=== PATIENT | male | born 2000 | race Caucasian/White ===

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

== ENCOUNTER 2021-05-05 03:07 | Emergency (ER) | payer OTHER ==
[~2021-05-05] VITALS: Ht 182.9 cm; Wt 81.8 kg
[2021-05-05 06:16] VITALS: BP 163/83
== END 2021-05-05 07:01 | disposition home or self-care (01) ==
LOC: M ED 03:07
DX: S92.504A Nondisplaced unspecified fracture of right lesser toe(s), initial encounter for closed fracture (principal); W22.09XA Striking against other stationary object, initial encounter; Y92.009 Unspecified place in unspecified non-institutional (private) residence as the place of occurrence of the external cause; Y93.9 Activity, unspecified; Y99.9 Unspecified external cause status; F17.200 Nicotine dependence, unspecified, uncomplicated

== ENCOUNTER 2021-11-09 18:17 | Emergency (ER) | payer OTHER ==
[~2021-11-09] VITALS: Ht 182.9 cm; Wt 77.3 kg
[2021-11-09 18:19] VITALS: BP 139/92
== END 2021-11-09 23:40 | disposition left against medical advice (07) ==
LOC: M ED 18:17
DX: Z53.21 Procedure and treatment not carried out due to patient leaving prior to being seen by health care provider (principal)

== ENCOUNTER 2021-11-10 19:33 | Emergency (ER) | payer OTHER ==
[~2021-11-10] VITALS: Ht 182.9 cm; Wt 77.9 kg
[2021-11-10 19:34] VITALS: BP 142/110
[2021-11-10] MEDS ORDERED: PSEUDOEPHEDRINE 30 MG TAB PO ONE (20:15)
[2021-11-10] MEDS ORDERED: NS 1,000 ML IV ONE (20:15)
[2021-11-10] MEDS ORDERED: KETOROLAC 30 MG/ML 1ML VIAL IV ONE (20:15)
[2021-11-10 20:37] LABS: BASO % 0.3 % (0.0-1.0); EOS % 0.4 % (0.0-3.0); HEMATOCRIT 43.9 % (42.0-52.0); HEMOGLOBIN 15.2 g/dl (13.5-17.5); LYMPH # 1.5 10^3/uL (1.5-5.0); LYMPH % 15.8 % (24.0-44.0); MEAN CORPUSCULAR HEMOGLOBIN 32.3 pg (27.0-33.0); MEAN CORPUSCULAR HGB CONC 34.6 g/dl (32.0-36.5); MEAN CORPUSCULAR VOLUME 93.4 fl (80.0-96.0); MONO # 1.5 10^3/uL (0.0-0.8); MONO % 15.7 % (2.0-8.0); NEUTROPHILS # 6.4 10^3/uL (1.5-8.5); NEUTROPHILS % 67.5 % (36.0-66.0); PLATELET COUNT, AUTOMATED 225 10^3/uL (150-450); WHITE BLOOD COUNT 9.5 10^3/uL (4.0-10.0)
[2021-11-10 21:33] LABS: ALBUMIN 4.1 GM/DL (3.2-5.2); ALT/SGPT 65 U/L (12-78); BILIRUBIN,DIRECT 0.2 MG/DL (0.0-0.2); BILIRUBIN,TOTAL 0.6 MG/DL (0.2-1.0); BLOOD UREA NITROGEN 6 MG/DL (7-18); CALCIUM LEVEL 9.3 MG/DL (8.5-10.1); CARBON DIOXIDE LEVEL 23 MEQ/L (21-32); CHLORIDE LEVEL 105 MEQ/L (98-107); CREATININE FOR GFR 0.78 MG/DL (0.70-1.30); GLUCOSE, FASTING 89 MG/DL (70-100); POTASSIUM SERUM 3.9 MEQ/L (3.5-5.1); SODIUM LEVEL 138 MEQ/L (136-145); TOTAL PROTEIN 8.1 GM/DL (6.4-8.2)
[2021-11-10 21:34] LABS: LIPASE 85 U/L (73-393)
== END 2021-11-10 22:55 | disposition home or self-care (01) ==
LOC: M ED 19:33
DX: R51.9 Headache, unspecified (principal)
CPT/HCPCS: 80048; 80076; 83690; 85025; 87486; 87581; 87633; 87798; 96361; 96374; 99283; J1885

== ENCOUNTER → 2022-08-18 | Outpatient (CLI) | payer OTHER ==
[~2022-08-18] MED LIST changes: +BENZ0.5T2; -BENZ0.5T23
== END ==
LOC: M RAD 16:24
PROVIDERS: ATTEND Physician Assistant Medical
DX: M25.521 Pain in right elbow (principal)

== ENCOUNTER → 2022-09-27 | Outpatient (CLI) | payer OTHER ==
[2022-09-27 19:27] LABS: ALBUMIN 4.1 G/DL (3.2-5.2); ALKALINE PHOSPHATASE 104 U/L (46-116); ALT/SGPT 23 U/L (7.0-40); AST/SGOT 16 U/L (<34); BILIRUBIN,TOTAL 0.6 MG/DL (0.3-1.2); BLOOD UREA NITROGEN 8 MG/DL (9-23); CALCIUM LEVEL 9.6 MG/DL (8.5-10.1); CARBON DIOXIDE LEVEL 30 MMOL/L (20-31); CHLORIDE LEVEL 103 MMOL/L (98-107); CHOLESTEROL LEVEL 172 MG/DL (<200); CHOLESTEROL RISK RATIO 4.15 (<5); CREATININE FOR GFR 0.65 MG/DL (0.70-1.30); GLOMERULAR FILTRATION RATE > 60.0 (>60); GLUCOSE, FASTING 86 MG/DL (60-100); HDL CHOLESTEROL 41.4 MG/DL (>40); LDL CHOLESTEROL 114.2 MG/DL (<100); NON-HDL-C 130.6 MG/DL; POTASSIUM SERUM 4.5 MMOL/L (3.5-5.1); SODIUM LEVEL 137 MMOL/L (136-145); THYROID STIMULATING HORMONE 1.555 uIU/ML (0.55-4.78); TOTAL PROTEIN 6.6 G/DL (5.7-8.2); TRIGLYCERIDES LEVEL 82 MG/DL (<150)
== END ==
LOC: M LAB 18:14
PROVIDERS: ATTEND Nurse Practitioner Family
DX: E78.5 Hyperlipidemia, unspecified (principal)

== ENCOUNTER 2023-09-14 19:59 | Emergency (ER) | payer OTHER ==
[~2023-09-14] VITALS: Ht 180.3 cm; Wt 79.1 kg
[2023-09-14 21:59] VITALS: BP 131/71; TEMP 97.3; O2SAT 99
[2023-09-14] MEDS ORDERED: HYDR-4571 PO (23:48)
[2023-09-14] MEDS: NORCO 5/325MG TABLET (HOME DOSE PACK) PO ONE (23:57)
== END 2023-09-15 00:03 | disposition home or self-care (01) ==
LOC: M ED 19:59
DX: S62.306A Unspecified fracture of fifth metacarpal bone, right hand, initial encounter for closed fracture (principal); Y92.9 Unspecified place or not applicable; Y93.9 Activity, unspecified; Y99.9 Unspecified external cause status; F41.9 Anxiety disorder, unspecified; F31.9 Bipolar disorder, unspecified; F20.9 Schizophrenia, unspecified; Z79.899 Other long term (current) drug therapy

== ENCOUNTER → 2023-09-22 | Outpatient (CLI) | payer OTHER ==
[~2023-09-22] MED LIST changes: +HYDR-4571 PO
== END ==
LOC: M SOG 07:58
PROVIDERS: ATTEND Physician Assistant
DX: S62.336A Displaced fracture of neck of fifth metacarpal bone, right hand, initial encounter for closed fracture (principal)

== ENCOUNTER → 2024-03-10 | Outpatient (REF) | payer OTHER ==
[~2024-03-10] MED LIST changes: -CYCL5TAB PO; +CYCL5TAB4 PO
== END ==
LOC: M LAB REF 16:23
PROVIDERS: ATTEND Student in an Organized Health Care Education/Training Program
DX: R20.2 Paresthesia of skin (principal)

== ENCOUNTER 2024-05-07 09:53 | Inpatient (IN) | payer MEDICAID, OTHER ==
[~2024-05-07] VITALS: Ht 180.3 cm; Wt 77.0 kg
[2024-05-07] MEDS: BOOSTRIX VACCINE (TETANUS/DIPHTH/ACEL. PERTUSSIS) 0.5ML SYR IM.IMMUN ONE (10:50)
[2024-05-07] MEDS: OLANZapine INTRAMUSCULAR 10MG VIAL IM ONE (10:50)
[2024-05-07] MEDS: LORazepam 2 MG/ML 1ML VIAL IM ONE (10:50)
[2024-05-07 11:17] LABS: HEMATOCRIT 40.4 % (42.0-52.0); HEMOGLOBIN 14.3 g/dl (13.5-17.5); MEAN CORPUSCULAR HEMOGLOBIN 32.4 pg (27.0-33.0); MEAN CORPUSCULAR HGB CONC 35.4 g/dl (32.0-36.5); MEAN CORPUSCULAR VOLUME 91.4 fl (80.0-96.0); PLATELET COUNT, AUTOMATED 299 10^3/uL (150-450); RED BLOOD COUNT 4.42 10^6/uL (4.30-6.10); WHITE BLOOD COUNT 8.4 10^3/uL (4.0-10.0)
[2024-05-07 11:29] LABS: COCAINE METABOLITE URINE NEGATIVE (NEGATIVE)
[2024-05-07 11:30] LABS: AMPHETAMINES LEVEL URINE NEGATIVE (NEGATIVE); BARBITURATES URINE NEGATIVE (NEGATIVE); BENZODIAZEPINES URINE NEGATIVE (NEGATIVE); METHADONE URINE NEGATIVE (NEGATIVE); OPIATES URINE NEGATIVE (NEGATIVE); PHENCYCLIDINE URINE NEGATIVE (NEGATIVE)
[2024-05-07 11:32] LABS: CANNABINOIDS URINE POSITIVE (NEGATIVE)
[2024-05-07 11:46] LABS: SALICYLATE LEVEL < 3.0 MG/DL (<30)
[2024-05-07 11:47] LABS: ALBUMIN 4.4 G/DL (3.2-5.2); ALKALINE PHOSPHATASE 94 U/L (40-129); ALT/SGPT 37 U/L (7.0-40); AST/SGOT 55 U/L (<34); BILIRUBIN,DIRECT 0.2 MG/DL (<0.4); BILIRUBIN,TOTAL 0.6 MG/DL (0.3-1.2); BLOOD UREA NITROGEN 14 MG/DL (9-23); CALCIUM LEVEL 8.9 MG/DL (8.5-10.1); CARBON DIOXIDE LEVEL 25 MMOL/L (20-31); CHLORIDE LEVEL 107 MMOL/L (98-107); CREATININE FOR GFR 0.66 MG/DL (0.70-1.30); GLOMERULAR FILTRATION RATE > 60.0 (>60); GLUCOSE, FASTING 83 MG/DL (60-100); POTASSIUM SERUM 4.1 MMOL/L (3.5-5.1); SODIUM LEVEL 143 MMOL/L (136-145); TOTAL PROTEIN 7.7 G/DL (5.7-8.2)
[2024-05-07 11:48] LABS: THYROID STIMULATING HORMONE 0.962 uIU/ML (0.55-4.78)
[2024-05-07] MEDS ORDERED: DESV25TA PO (15:29)
[2024-05-07] MEDS ORDERED: [UNRECOGNIZED DRUG - CODE] SL (15:29)
[2024-05-07] MEDS ORDERED: HOME MED LIST COMPLETE! XX SCH (15:35)
[2024-05-07] MEDS ORDERED: LORazepam 1 MG TAB PO PRN (15:55)
[2024-05-07] MEDS ORDERED: ACETAMINOPHEN 325 MG TAB PO PRN (15:55)
[2024-05-07] MEDS ORDERED: IBUPROFEN 400MG TAB PO PRN (15:55)
[2024-05-07] MEDS ORDERED: MOM 30ML SUSPENSION UDC PO PRN (15:55)
[2024-05-07] MEDS: LORazepam 2 MG TAB PO ONE (15:57)
[2024-05-07] MEDS: OLANZapine 5 MG TAB PO ONE (15:57)
[2024-05-07 16:56] VITALS: BP 138/76; TEMP 98; O2SAT 99
[2024-05-07] MEDS ORDERED: LORazepam 2 MG TAB PO PRN (17:50)
[2024-05-07 18:03] VITALS: BP 138/76
[2024-05-07] MEDS: THIAMINE 100 MG TAB PO SCH (20:27)
[2024-05-07] MEDS: clonazePAM 1 MG TAB PO SCH (20:27)
[2024-05-08] VITALS: BP 126/80
[2024-05-08 06:27] VITALS: BP 130/77; TEMP 97; O2SAT 98
[2024-05-08 08:00] VITALS: BP 130/77
[2024-05-08] MEDS: FOLIC ACID 1MG TAB PO SCH (09:56)
[2024-05-08] MEDS: BUPRENORPHINE/NALOXONE 2-0.5MG SUBLINGUAL TABLET(SUBOXONE) SL SCH (09:56)
[2024-05-08] MEDS: MULTIVITAMINS/MINERALS THERAP 1 TAB PO SCH (09:56)
[2024-05-08] MEDS: NEOSPORIN TOP OINT 15GM TOP SCH (11:17)
[2024-05-08 15:22] VITALS: BP 127/73; TEMP 97.8; O2SAT 96
[2024-05-08] MEDS: QUEtiapine FUMARATE 50MG TAB PO SCH (20:40)
[2024-05-08] MEDS: traZODone 50 MG TAB PO PRN (20:40)
[2024-05-09 06:55] VITALS: BP 109/67; TEMP 97; O2SAT 100
[2024-05-09 15:10] VITALS: BP 139/82; TEMP 98.3; O2SAT 98
[2024-05-10 06:54] VITALS: BP 122/77; TEMP 97.3; O2SAT 98
[2024-05-10] MEDS: NICOTINE POLACRILEX 2 MG GUM PO PRN (15:01)
[2024-05-10] MEDS: clonazePAM 0.5 MG TAB PO SCH (15:29)
[2024-05-10 17:07] VITALS: BP 122/80; TEMP 97.2; O2SAT 96
[2024-05-10] MEDS: QUEtiapine FUMARATE 100 MG TAB PO SCH (22:05)
[2024-05-10] MEDS: OLANZapine ORAL DISINTEGRATING TAB 5MG PO PRN (22:53)
[2024-05-11 06:57] VITALS: BP 107/52; TEMP 98; O2SAT 100
[2024-05-11 16:58] VITALS: BP 132/61; TEMP 97.8; O2SAT 97
[2024-05-11] MEDS: clonazePAM 0.5 MG TAB PO SCH (21:08)
[2024-05-12] MEDS ORDERED: QUET100T2 PO (01:30)
[2024-05-12] MEDS ORDERED: HYDR-3363 PO (01:30)
[2024-05-12] MEDS ORDERED: TRAZ-252 PO (01:30)
[2024-05-12 06:30] VITALS: BP 131/58; TEMP 96.9; O2SAT 98
== END 2024-05-12 11:13 | disposition home or self-care (01) | DRG 756 ==
LOC: EDBD 09:53 → M ED 09:53 → M ED INP 15:23 → EEVIPCON 15:23 → M PSY 16:57
PROVIDERS: ADMIT Psychiatry & Neurology Psychiatry; ATTEND Psychiatry & Neurology Psychiatry
DX: F41.1 Generalized anxiety disorder (principal); S62.336D Displaced fracture of neck of fifth metacarpal bone, right hand, subsequent encounter for fracture with routine healing; F43.10 Post-traumatic stress disorder, unspecified; F90.9 Attention-deficit hyperactivity disorder, unspecified type; F10.10 Alcohol abuse, uncomplicated; F11.10 Opioid abuse, uncomplicated; F17.210 Nicotine dependence, cigarettes, uncomplicated; R45.851 Suicidal ideations; S01.81XA Laceration without foreign body of other part of head, initial encounter; W26.8XXA Contact with other sharp object(s), not elsewhere classified, initial encounter; Z79.899 Other long term (current) drug therapy; Y92.9 Unspecified place or not applicable

== ENCOUNTER 2024-06-08 01:26 | Emergency (ER) | payer MEDICAID, OTHER ==
[~2024-06-08] VITALS: Ht 180.3 cm; Wt 77.3 kg
[~2024-06-08 01:26] MED LIST changes: +DESV25TA PO; +HYDR-3363 PO; +QUET100T2 PO; +TRAZ-252 PO; +[UNRECOGNIZED DRUG - CODE] SL
[2024-06-08 04:22] LABS: BASO % 0.3 % (0.0-1.0); EOS # 0.1 10^3/uL (0.0-0.5); EOS % 0.5 % (0.0-3.0); HEMOGLOBIN 13.4 g/dl (13.5-17.5); LYMPH # 2.4 10^3/uL (1.5-5.0); LYMPH % 24.4 % (24.0-44.0); MEAN CORPUSCULAR HEMOGLOBIN 32.6 pg (27.0-33.0); MEAN CORPUSCULAR HGB CONC 35.3 g/dl (32.0-36.5); MEAN CORPUSCULAR VOLUME 92.5 fl (80.0-96.0); MONO # 1.3 10^3/uL (0.0-0.8); MONO % 12.7 % (2.0-8.0); NEUTROPHILS # 6.2 10^3/uL (1.5-8.5); NEUTROPHILS % 61.9 % (36.0-66.0); PLATELET COUNT, AUTOMATED 225 10^3/uL (150-450); RED BLOOD COUNT 4.11 10^6/uL (4.30-6.10)
[2024-06-08 04:43] LABS: BARBITURATES URINE NEGATIVE (NEGATIVE); BENZODIAZEPINES URINE NEGATIVE (NEGATIVE)
[2024-06-08 04:44] LABS: METHADONE URINE NEGATIVE (NEGATIVE); OPIATES URINE NEGATIVE (NEGATIVE); PHENCYCLIDINE URINE NEGATIVE (NEGATIVE)
[2024-06-08 04:45] LABS: ETHYL ALCOHOL (ETHANOL) 0.036 % (0.000-0.010)
[2024-06-08 04:47] LABS: BLOOD UREA NITROGEN 8 MG/DL (9-23); CALCIUM LEVEL 8.8 MG/DL (8.5-10.1); CARBON DIOXIDE LEVEL 24 MMOL/L (20-31); CHLORIDE LEVEL 105 MMOL/L (98-107); CREATININE FOR GFR 0.67 MG/DL (0.70-1.30); GLOMERULAR FILTRATION RATE > 90.0 (>60); GLUCOSE, FASTING 82 MG/DL (60-100); POTASSIUM SERUM 3.8 MMOL/L (3.5-5.1); SODIUM LEVEL 139 MMOL/L (136-145)
[2024-06-08 05:08] LABS: AMPHETAMINES LEVEL URINE POSITIVE (NEGATIVE); CANNABINOIDS URINE POSITIVE (NEGATIVE); COCAINE METABOLITE URINE POSITIVE (NEGATIVE)
[2024-06-08 09:18] VITALS: BP 114/61; O2SAT 97
[2024-06-08 09:25] VITALS: TEMP 96.9
== END 2024-06-08 14:40 | disposition home or self-care (01) ==
LOC: M ED 01:26 → EDBD 01:26 → M ED 14:40
DX: S00.83XA Contusion of other part of head, initial encounter (principal); S62.667A Nondisplaced fracture of distal phalanx of left little finger, initial encounter for closed fracture; Y92.9 Unspecified place or not applicable; Y93.9 Activity, unspecified; Y99.9 Unspecified external cause status; Z79.899 Other long term (current) drug therapy

== ENCOUNTER → 2024-06-10 | Outpatient (CLI) | payer OTHER | LOC: M SOG 14:02 | PROVIDERS: ATTEND Physician Assistant | DX: M79.645 Pain in left finger(s) (principal); S62.663A Nondisplaced fracture of distal phalanx of left middle finger, initial encounter for closed fracture; Y93.9 Activity, unspecified; Y92.9 Unspecified place or not applicable ==

== ENCOUNTER → 2024-06-18 | Outpatient (CLI) | payer OTHER | LOC: M SOG 07:56 | PROVIDERS: ATTEND Physician Assistant | DX: S62.667A Nondisplaced fracture of distal phalanx of left little finger, initial encounter for closed fracture (principal); W18.30XA Fall on same level, unspecified, initial encounter; Y92.009 Unspecified place in unspecified non-institutional (private) residence as the place of occurrence of the external cause ==

== ENCOUNTER 2024-08-25 20:16 | Emergency (ER) | payer OTHER ==
[~2024-08-25] VITALS: Ht 180.3 cm; Wt 81.8 kg
[~2024-08-25 20:16] MED LIST changes: +DIVA-41; -DIVA500T94; +KETO-204 PO; +PERCOCET PO
[2024-08-25 20:17] VITALS: BP 140/95; TEMP 98.1; O2SAT 100
== END 2024-08-25 20:49 | disposition left against medical advice (07) ==
LOC: M ED 20:16
DX: Z53.21 Procedure and treatment not carried out due to patient leaving prior to being seen by health care provider (principal)

== ENCOUNTER → 2024-09-17 | Outpatient (CLI) | payer OTHER | LOC: M SOG 14:00 | PROVIDERS: ATTEND Physician Assistant | DX: S62.001D Unspecified fracture of navicular [scaphoid] bone of right wrist, subsequent encounter for fracture with routine healing (principal); S52.515D Nondisplaced fracture of left radial styloid process, subsequent encounter for closed fracture with routine healing ==